=== PATIENT | male | born 1995 | race Hispanic/Latino ===

== ENCOUNTER 2016-11-01 16:27 | Inpatient (IN) | payer MEDICAID ==
[2016-11-01] MEDS ORDERED: Sodium Chloride 0.9% 1,000 ML IV STA ×3 (16:55→19:44)
--- NOTE | 2016-11-01 17:02 | ED PDOC ---
HPI: Psych/Substance Abuse Time Seen by Provider: 11/01/16 16:35 Chief Complaint (Nursing): Psychiatric Evaluation Chief Complaint (Provider): Psychiatric Evaluation History Per: Patient History/Exam Limitations: no limitations Onset/Duration Of Symptoms: Days (1x year) Current Symptoms Are (Timing): Still Present Suicide/Self Injury Attempted (Context): None Modifying Factor(s): Alcohol, Cocaine Severity: Moderate Associated Symptoms: Anxiety, Depression, Suicidal Thoughts. denies: Suicidal Plan Additional Complaint(s): 21 year old male with a pertinent medical history of anxiety and depression presents to the ED for a psychiatric evaluation. He reports that he has been experiencing anxiety and depression for the past 1x year and it has been worsening and building up. He reports having suicidal thought, but no plan, and denies having homicidal thoughts. He reports that he drank a lot of alcohol last night and had cocaine. He reports having nausea, vomiting, and shortness of breath when his anxiety worsens, but denies having chest pain and abdominal pain. Patient reports taking antidepressants in the past but stopped taking them. No numbness, tingles. No headaches, dizziness. Did not take anything or do anything to harm self. No weakness. PMD: Patient does not have a PMD Past Medical History Reviewed: Historical Data, Nursing Documentation, Vital Signs Vital Signs: Last Vital Signs Temp 97.5 F L 11/01/16 16:32 Pulse 128 H 11/01/16 16:32 Resp 16 11/01/16 16:32 BP 152/75 H 11/01/16 16:32 Pulse Ox 98 11/01/16 16:32 - Medical History PMH: Anxiety, Depression - Surgical History Surgical History: No Surg Hx - Family History Family History: States: Unknown Family Hx - Social History Current smoker - smoking cessation education provided: No Alcohol: Occasional (patient admits to drinking a lot last night) Drugs: Cocaine - Home Medications Home Medications: Ambulatory Orders Medication Instructions Recorded No Known Home Med 11/01/16 - Allergies Allergies/Adverse Reactions: Allergies Allergy/AdvReac Type Severity Reaction Status Date / Time No Known Allergies Allergy Verified 06/01/16 01:07 Review of Systems ROS Statement: Except As Marked, All Systems Reviewed And Found Negative Constitutional: Negative for: Fever Cardiovascular: Negative for: Chest Pain Respiratory: Positive for: Shortness of Breath. Negative for: Cough Gastrointestinal: Positive for: Nausea, Vomiting. Negative for: Abdominal Pain Psych: Positive for: Anxiety, Depression, Suicidal ideation Physical Exam - Reviewed Nursing Documentation Reviewed: Yes Vital Signs Reviewed: Yes - Physical Exam Appears: Positive for: Non-toxic, No Acute Distress Head Exam: Positive for: ATRAUMATIC, NORMOCEPHALIC Skin: Positive for: Normal Color, Warm, Dry Eye Exam: Positive for: Normal appearance, EOMI, PERRL ENT: Positive for: Normal ENT Inspection Neck: Positive for: Normal Cardiovascular/Chest: Positive for: Tachycardia (mild). Negative for: Chest Non Tender Respiratory: Positive for: Normal Breath Sounds. Negative for: Respiratory Distress Gastrointestinal/Abdominal: Positive for: Normal Exam, Soft. Negative for: Tenderness Back: Positive for: Normal Inspection. Negative for: L CVA Tenderness, R CVA Tenderness, Vertebral Tenderness Extremity: Positive for: Normal ROM. Negative for: Tenderness, Deformity, Swelling Neurologic/Psych: Positive for: Alert, hospital pharmacist II-XII, Oriented (3x). Negative for : Motor/Sensory Deficits, Facial Droop - Laboratory Results Result Diagrams: 11/01/16 17:37 11/01/16 17:37 Interpretation Of Abn Labs: coccaine, alcohol - ECG ECG: Positive for: Interpreted By Me, Viewed By Me Interpretation Of Abn EKG: mild tachy O2 Sat by Pulse Oximetry: 98 (RA) Pulse Ox Interpretation: Normal - Radiology X-Ray: Interpreted by Me, Viewed By Me X-Ray Interpretation: No Acute Disease - Progress ED Course And Treament: 1926: Sinus tachy likely related to coccaine. Continue fluids, ativan given. Crisis saw pt. Accepted for admit. 2237: Stable. AAOx3. Medially stable. HR improving. Will admit to psych. Medical Decision Making Medical Decision Makin:35 Initial impression: 21 year old male with anxiety and depression. Initial plan: * Crisis evaluation * 1:1 observation * XRay chest * EKG * alcohol serum * CMP * drug screen urinary * troponin I * udip * CBC * IV NS 1,000ml IV 1,000mls/hr * POC * reevaluation Scribe Attestation: Documented by Tami Lamas, acting as a scribe for Ari Barrera MD. Provider Scribe Attestation: All medical record entries made by the Scribe were at my direction and personally dictated by me. I have reviewed the chart and agree that the record accurately reflects my personal performance of the history, physical exam, medical decision making, and the department course for this patient. I have also personally directed, reviewed, and agree with the discharge instructions and disposition. Disposition - Clinical Impression Clinical Impression: Depression, Adverse effect of cocaine - Patient ED Disposition Is Patient to be Admitted: Yes Counseled Patient/Family Regarding: Studies Performed, Diagnosis - Disposition Disposition Time: 20:41 Condition: STABLE - Pt Status Changed To: Hospital Disposition Of: Inpatient - Admit Certification Admit to Inpatient:: After my assessment, the patient will require hospitalization for at least two midnights. This is because of the severity of symptoms shown, intensity of services needed, and/or the medical risk in this patient being treated as an outpatient. - POA Present On Arrival: None
[2016-11-01 17:44] LABS: BASO % 0.6 % (0.0-2.0); EOS # 0.1 K/uL (0.0-0.7); EOS % 1.2 % (0.0-4.0); HEMOGLOBIN 17.4 g/dL (12.0-18.0); LYMPH # 1.6 K/uL (1.0-4.3); LYMPH % 19.3 % (20.0-40.0); MEAN CELL VOLUME 87.6 fl (80.0-94.0); MEAN CORPUSCULAR HGB CONC 34.2 g/dL (33.0-37.0); MEAN PLATELET VOLUME 7.7 fl (7.2-11.7); MONO # 0.5 K/uL (0.0-0.8); MONO % 6.5 % (0.0-10.0); NEUT # 5.9 K/uL (1.8-7.0); NEUT % 72.4 % (50.0-75.0); NRBC % 0.1 % (0.0-0.0); RBC 5.79 Mil/uL (4.40-5.90); RED CELL DISTRIBUTION WIDTH 13.5 % (11.5-14.5); WHITE BLOOD COUNT 8.2 K/uL (4.8-10.8)
[2016-11-01 17:57] LABS: ALB/GLOB RATIO 1.5 (1.0-2.1); ALBUMIN 4.6 g/dL (3.5-5.0); ALT/SGPT 43 U/L (21-72); AST/SGOT 24 U/L (17-59); BLOOD UREA NITROGEN 7 mg/dl (9-20); CALCIUM 9.2 mg/dL (8.4-10.2); GFR AFRICAN-AMERICAN > 60; GFR NON-AFRICAN AMERICAN > 60
[2016-11-01 18:36] LABS: BARBITURATES, UR NEGATIVE (NEGATIVE); BENZODIAZEPINES, UR NEGATIVE (NEGATIVE); OPIATES, UR NEGATIVE (NEGATIVE); PHENCYCLIDINE, UR NEGATIVE (NEGATIVE)
[2016-11-01 22:37] VITALS: O2SAT 98
[2016-11-02] MEDS ORDERED: DiphenhydrAMINE 50 mg/ml Inj IM PRN (00:03)
[2016-11-02] MEDS ORDERED: Alum-Mag Hydrox-Simethicone Susp (30 mL) PO PRN (00:03)
[2016-11-02] MEDS ORDERED: Magnesium Hydroxide Susp 30 ml UD PO PRN (00:03)
[2016-11-02 08:40] LABS: T4 6.57 ug/dl (5.5-11.0)
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
--- NOTE | 2016-11-02 11:12 | CARD ---
APPROVED REPORT EKG Measurement Heart [id number] <Conclusion> Sinus tachycardia Nonspecific T wave abnormality Abnormal ECG
--- NOTE | 2016-11-02 14:00 | RAD ---
HISTORY: dyspnea COMPARISON: No prior. FINDINGS: LUNGS: No active pulmonary disease. PLEURA: No significant pleural effusion identified, no pneumothorax apparent. CARDIOVASCULAR: Normal. OSSEOUS STRUCTURES: No significant abnormalities. VISUALIZED UPPER ABDOMEN: Normal. OTHER FINDINGS: None. IMPRESSION: No active disease.
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
[2016-11-03 09:00] VITALS: BP 141/98; PULSE 78; RESP 16; TEMP 97.2
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
== END 2016-11-03 10:05 | disposition home or self-care (01) | DRG 881 ==
LOC: H.ER 16:27 → H.ERHOLD 22:39 → H.STEP 23:36 → H.PSYCH 11-02 17:39
PROVIDERS: ADMIT Psychiatry & Neurology Psychiatry; ATTEND Psychiatry & Neurology Psychiatry
PROC: GZHZZZZ Group Psychotherapy (ICD-10-PCS; principal; 2016-11-01)
PROC: GZ58ZZZ Individual Psychotherapy, Cognitive-Behavioral (ICD-10-PCS; 2016-11-01)
DX: F32.9 Major depressive disorder, single episode, unspecified (principal); R45.851 Suicidal ideations; F41.9 Anxiety disorder, unspecified; F14.10 Cocaine abuse, uncomplicated; F10.10 Alcohol abuse, uncomplicated; F17.210 Nicotine dependence, cigarettes, uncomplicated

== ENCOUNTER 2018-03-28 02:21 | Emergency (ER) | payer MEDICAID, OTHER ==
[2018-03-28 02:37] VITALS: RESP 18; TEMP 99
[2018-03-28] MEDS ORDERED: Bacitracin 500 Units/gm Oint Foilpak UD TOP STA (02:46)
[2018-03-28] MEDS ORDERED: Tdap Vaccine 0.5 ml Vial (10-64 yrs) IM ONE ×2 (02:46→03:39)
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
[2018-03-28 04:54] VITALS: BP 145/82; PULSE 108
[2018-03-28 05:30] VITALS: O2SAT 98
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
== END 2018-03-28 04:50 | disposition home or self-care (01) ==
LOC: H.ER 02:21
DX: S09.90XA Unspecified injury of head, initial encounter (principal); S00.83XA Contusion of other part of head, initial encounter; Z86.59 Personal history of other mental and behavioral disorders; S63.501A Unspecified sprain of right wrist, initial encounter; Y04.2XXA Assault by strike against or bumped into by another person, initial encounter; Z23 Encounter for immunization

== ENCOUNTER 2018-08-27 07:14 | Emergency (ER) | payer MEDICAID ==
[2018-08-27 07:23] VITALS: BMI 32.8
--- NOTE | 2018-08-27 07:55 | ED PDOC ---
HPI: Psych/Substance Abuse Time Seen by Provider: 08/27/18 07:16 Chief Complaint (Nursing): Psychiatric Evaluation Chief Complaint (Provider): Psychiatric Evaluation History Per: Patient History/Exam Limitations: no limitations Current Symptoms Are (Timing): Still Present Additional Complaint(s): 23 year old male with medical history of bipolar disorder, presents to the emergency department for an evaluation of suicidal ideation with plan to ingest a bottle of Xanax. Patient states he has been depressed secondary to history of alcohol abuse and other substance abuse for "many years but can't stop". Otherwise, he denies hallucination or any physical complaints. Past Medical History Reviewed: Historical Data, Nursing Documentation, Vital Signs Vital Signs: Last Vital Signs Temp 98.2 F 08/27/18 07:22 Pulse 123 H 08/27/18 07:22 Resp 20 08/27/18 07:22 BP 146/82 08/27/18 07:22 Pulse Ox 96 08/27/18 07:22 Primary Care Provider: FAMILY PROVIDER,NO - Medical History PMH: Anxiety, Bipolar Disorder, Depression Denies: Diabetes, Hepatitis, HIV, HTN, Seizures, Sexually Transmitted Disease - Family History Family History: States: Unknown Family Hx - Social History Alcohol: > 2 Drinks/Day - Home Medications Home Medications: Ambulatory Orders Medication Instructions Recorded ALPRAZolam [Xanax] 1 mg PO DAILY 08/27/18 Divalproex [Depakote ER(ONCE 500 mg PO DAILY 08/27/18 DAILY)] QUEtiapine [Seroquel] 100 mg PO DAILY 08/27/18 - Allergies Allergies/Adverse Reactions: Allergies Allergy/AdvReac Type Severity Reaction Status Date / Time No Known Allergies Allergy Unverified 03/28/18 02:30 Review of Systems ROS Statement: Except As Marked, All Systems Reviewed And Found Negative Constitutional: Negative for: Fever, Chills Psych: Positive for: Depression, Suicidal ideation. Negative for: Other (hallucination) Physical Exam - Reviewed Nursing Documentation Reviewed: Yes Vital Signs Reviewed: Yes - Physical Exam Appears: Positive for: Non-toxic, No Acute Distress Head Exam: Positive for: ATRAUMATIC, NORMAL INSPECTION, NORMOCEPHALIC Skin: Positive for: Normal Color Eye Exam: Positive for: Normal appearance ENT: Positive for: Normal ENT Inspection. Negative for: Pharyngeal Erythema Neck: Positive for: Normal Cardiovascular/Chest: Positive for: Regular Rate, Rhythm. Negative for: Bradycardia, Tachycardia Respiratory: Positive for: Normal Breath Sounds. Negative for: Wheezing, Respiratory Distress Pulses-Radial (L): 2+ Pulses-Radial (R): 2+ Gastrointestinal/Abdominal: Positive for: Normal Exam, Soft. Negative for: Tenderness Extremity: Positive for: Normal ROM (upper/lower) Neurological/Psych: Positive for: Normal Tone. Negative for: Motor/Sensory Deficits - Laboratory Results Result Diagrams: 08/27/18 07:52 08/27/18 07:52 - ECG O2 Sat by Pulse Oximetry: 96 (RA) Pulse Ox Interpretation: Normal Medical Decision Making Medical Decision Making: Time: 744 Initial Plan: crisis evaluation * EKG * Labs including UA * CXR * 1:1 OBS Time: 809 --Patient appears anxious with (+) tachycardia. Expresses concern for alcohol withdraw. Additionally ordered 2mg Ativan PO. Evaluated by Crisis. No longer with suicidal ideation Scribe Attestation: Documented by Alysa Villar, acting as a scribe for Stef Farrell MD. Provider Scribe Attestation: All medical record entries made by the Scribe were at my direction and personally dictated by me. I have reviewed the chart and agree that the record accurately reflects my personal performance of the history, physical exam, medical decision making, and the department course for this patient. I have also personally directed, reviewed, and agree with the discharge instructions and disposition. Disposition - Clinical Impression Clinical Impression: Substance abuse - Patient ED Disposition Is Patient to be Admitted: No Counseled Patient/Family Regarding: Studies Performed, Diagnosis, Need For Followup - Disposition Referrals: [facility] [Outside] Disposition: Routine/Home Disposition Time: 09:37 Condition: FAIR Additional Instructions: [facility] [address] [address] BROCHURE AND INSURANCE INFORMATION GIVEN TO PT. Instructions: Polysubstance Abuse (DC) Forms: [employer] ([place])
[2018-08-27 08:03] LABS: BASO # 0.1 K/uL (0.0-0.2); BASO % 0.5 % (0.0-2.0); EOS # 0.1 K/uL (0.0-0.7); EOS % 0.7 % (0.0-4.0); HEMOGLOBIN 15.9 g/dL (12.0-18.0); LYMPH # 3.6 K/uL (1.0-4.3); LYMPH % 32.6 % (20.0-40.0); MEAN CELL VOLUME 85.8 fl (80.0-94.0); MEAN CORPUSCULAR HEMOGLOBIN 30.2 pg (27.0-31.0); MEAN CORPUSCULAR HGB CONC 35.2 g/dL (33.0-37.0); MEAN PLATELET VOLUME 7.6 fl (7.2-11.7); MONO # 1.1 K/uL (0.0-0.8); NEUT # 6.3 K/uL (1.8-7.0); NEUT % 56.2 % (50.0-75.0); NRBC % 0.1 % (0.0-0.0); RBC 5.28 Mil/uL (4.40-5.90); RED CELL DISTRIBUTION WIDTH 13.5 % (11.5-14.5); WHITE BLOOD COUNT 11.2 K/uL (4.8-10.8)
[2018-08-27 08:04] LABS: URINE BACTERIA RARE (<OCC); URINE BILIRUBIN NEGATIVE (NEGATIVE); URINE BLOOD NEGATIVE (NEGATIVE); URINE CLARITY CLEAR (Clear); URINE COLOR STRAW (YELLOW); URINE GLUCOSE (UA) 50 mg/dL (NEGATIVE); URINE LEUKOCYTE ESTERASE NEG Leu/uL (Negative); URINE PROTEIN NEGATIVE (NEGATIVE); URINE UROBILINOGEN 0.2-1.0 mg/dL (0.2-1.0)
[2018-08-27 08:20] LABS: ALB/GLOB RATIO 1.6 (1.0-2.1); ALBUMIN 4.8 g/dL (3.5-5.0); ALT/SGPT 81 U/L (21-72); AST/SGOT 41 U/L (17-59); BLOOD UREA NITROGEN 8 mg/dl (9-20); CALCIUM 8.6 mg/dL (8.4-10.2); GFR NON-AFRICAN AMERICAN > 60
[2018-08-27 09:14] LABS: BARBITURATES, UR NEGATIVE (NEGATIVE); BENZODIAZEPINES, UR NEGATIVE (NEGATIVE); OPIATES, UR NEGATIVE (NEGATIVE); PHENCYCLIDINE, UR NEGATIVE (NEGATIVE)
[2018-08-27 09:54] VITALS: BP 138/80; PULSE 84; RESP 16; TEMP 98; O2SAT 100
--- NOTE | 2018-08-28 09:50 | CARD ---
APPROVED REPORT Date of service: 08/27/2018 EKG Measurement Heart [id number] <Conclusion> Sinus tachycardia Otherwise normal ECG
== END 2018-08-27 09:40 | disposition home or self-care (01) ==
LOC: H.ER 07:14
DX: F19.10 Other psychoactive substance abuse, uncomplicated (principal); F31.9 Bipolar disorder, unspecified; F41.9 Anxiety disorder, unspecified; R00.0 Tachycardia, unspecified